=== PATIENT | male | born 1960 | race Caucasian/White ===

== ENCOUNTER 2019-04-14 13:13 | Emergency (ER) | payer SELFPAY ==
[~2019-04-14] VITALS: Ht 180.3 cm; Wt 67.5 kg
[~2019-04-14 13:13] MED LIST: DEXA2TAB PO; DOCU100T6 PO; FAMO-79 PO; HYDR-3240 PO; LISI20TA PO; OXYC-302 PO; TEMA15CA6 PO
[2019-04-14 13:17] VITALS: BP 199/100
--- NOTE | 2019-04-14 13:31 | NUR ---
THIS IS A 59 YEAR OLD MALE WITH A HX OF BRAIN TUMOR STATES HE HAD AN EPISODE LAST WEEK OF BEING UNBALANCED THAT LASTED 1 DAY. SYMPTOMS IMPROVED NOW. GAIT STEADY.
--- NOTE | 2019-04-14 14:43 | NUR ---
Patient/Caregiver given discharge instructions and they have confirmed that they understand the instructions. Patient ambulatory with steady gait.
== END 2019-04-14 14:45 | disposition home or self-care (01) ==
LOC: ED 13:41
DX: R42 Dizziness and giddiness (principal)
CPT/HCPCS: 70450; 99284